=== PATIENT | female | born 1965 | race Caucasian/White ===

== ENCOUNTER 2025-09-08 14:08 | Day surgery (SDC) | payer BC ==
--- NOTE | 2025-09-07 09:24 | ELECTROCARDIOGRAPH REPORT ---
[facility] Test Date: 2025-09-07 Test Time: 09:20:14 Pat Name: ROBBIN DIOP Department: [facility]-PRE-OP Patient ID: [id number] Room: Gender: F Grinder Set Up Operator Centerless: SCOTT : 1965 Requested By: ARSALAN TALLEY Order Number: [id number] Reading MD: Dr. HOME Dave Measurements Intervals Paulina Rate: 54 P: 68 TN: 164 QRS: 62 QRSD: 78 T: 57 QT: 426 QTc: 404 Interpretive Statements Sinus bradycardia Electronically Signed On 09-07-2025 12:52:[address] HOME Dave Please click the below link to view image of tracing.
[2025-09-07 09:30] LABS: MEAN PLATELET VOLUME 8.0 FL (7.4-10.4); PRE OP HEMATOCRIT 37.8 % (35.0-45.0); PRE OP HEMOGLOBIN 12.4 g/dL (12.0-16.0); PRE OP PLATELET COUNT 318 X10'3 (140-440); PRE OP WHITE BLOOD COUNT 6.8 10'3 (4.8-10.8); RED CELL DISTRIBUTION WIDTH 13.7 % (11.5-14.5)
[2025-09-07 10:18] LABS: CREATININE 0.53 MG/DL (0.40-0.90); PRE OP ALT 22 U/L (30-65); PRE OP ANION GAP 7 (8-16); PRE OP AST 18 U/L (10-37); PRE OP BILIRUB, TOTAL 0.4 MG/DL (0.0-1.0); PRE OP GLUCOSE 85 MG/DL (70-104); PRE OP POTASSIUM 4.1 MMOL/L (3.4-5.1); PRE OP SODIUM 143 MMOL/L (135-145); TOTAL CARBON DIOXIDE 30.1 MMOL/L (24-32); eGFR > 90 ML/MIN
[~2025-09-08] VITALS: Ht 152.4 cm; Wt 56.7 kg
[2025-09-08] VITALS (12 sets, daily range): BP systolic 117–156; BP diastolic 54–78; PULSE 50–65; RESP 12–16; TEMP 98.4; O2SAT 94–100
[~2025-09-08 14:08] MED LIST: NO HOME MEDS
[2025-09-08] MEDS ORDERED: BUPIVAcaine/PF 2.5mg/ml (0.25%) 10ml vial ONE (14:42)
[2025-09-08] MEDS ORDERED: LIDOcaine 1% 30ml preserv. free vial ONE (14:43)
[2025-09-08] MEDS: INDOCYANINE GREEN 25 MG/10 ML VIAL IV ONE (15:26)
[2025-09-08] MEDS: ceFAZolin 2gm/dext,iso 50mL 50 ML IV ONE (15:29)
[2025-09-08] MEDS: ringers solution, lacted 1,000 ML IV SCH (15:29)
[2025-09-08] MEDS ORDERED: fentaNYL/PF 50MCG/1 ML 2ML syringe IV PRN (16:25)
[2025-09-08] MEDS ORDERED: enalaprilat 1.25mg/ml 2ml vial IV PRN (16:25)
[2025-09-08] MEDS ORDERED: ondansetron/PF 4mg/2ml inj IV PRN (16:25)
[2025-09-08] MEDS ORDERED: ringers solution, lacted 1,000 ML IV SCH (16:25)
[2025-09-08] MEDS ORDERED: HYDROmorphone/PF 0.2 MG/ML SYRINGE IV PRN ×2 (16:25)
[2025-09-08] MEDS ORDERED: labetalol 20mg/4ml (5mg/ml) syringe IV PRN (16:25)
[2025-09-08] MEDS ORDERED: morphine 4 MG/ML inj SYRINge IV PRN (16:25)
[2025-09-08] MEDS ORDERED: LIDOcaine 1%/PF 5ML 10 MG/ML VIAL ONE (16:35)
[2025-09-08] MEDS ORDERED: fentaNYL/PF 50MCG/1 ML 2ML syringe ONE (16:35)
[2025-09-08] MEDS ORDERED: propofol inj 20 ML IV ONE (16:35)
[2025-09-08] MEDS ORDERED: midazolam 1 mg/ML 2ml injection ONE (16:35)
[2025-09-08] MEDS ORDERED: ondansetron/PF 4mg/2ml inj ONE (16:57)
[2025-09-08] MEDS ORDERED: dexamethasone sod phosphate 4mg/ml inj. ONE (16:57)
[2025-09-08] MEDS ORDERED: rocuronium 10mg/ml inj IV ONE (16:57)
[2025-09-08] MEDS ORDERED: acetaminophen 1,000mg/100ml IV 100 ML IV ONE (17:09)
[2025-09-08] MEDS ORDERED: glycopyrrolate 0.2mg/ml inj ONE (17:09)
[2025-09-08] MEDS: LIDOcaine 1% 30ml preserv. free vial IJ ONE (17:14)
[2025-09-08] MEDS: BUPIVAcaine/PF 2.5 mg/ml (0.25%) 30ml vial IJ ONE (17:14)
--- NOTE | 2025-09-08 18:24 | OPERATIVE REPORT ---
Operative Report Providers to CC CC: RICARDO TALLEY MD ~ Date of Procedure: Sep 08, 2025 Pre-Operative Diagnosis: Symptomatic cholelithiasis Post-Operative Diagnosis SAME as PRE-Op Procedure Performed Robotic assisted, laparoscopic cholecystectomy Surgeon: Ricardo Talley MD FACS [employer] Machine Operator Helper None Anesthesiologist: Kehinde Christiansen Type of Anesthesia: General Findings: Clear visualization of the cystic duct, common bile duct and critical view of safety Wound class II Complications None Prosthetics\Implants used: None Estimated Blood Loss: Minimal Specimen Removed: Gallbladder Description of Procedure: Patient was brought to the operating room and identified by the nursing staff and the attending physician. Patient was placed supine and general anesthesia was induced. A supraumbilical, midline incision was made, long enough to accommodate a 12 mm Alejo port. Alejo technique was used to gain entry into the abdomen. Stay sutures were placed in the Alejo port anchored to the fascia. Abdomen was insufflated without incident. Laparoscope was inserted and the abdomen surveyed. Secondary, 8.5 mm robotic trochars were placed in the left upper quadrant and right lateral abdomen. Robotic arm was docked to the patient. Robotic instruments were guided intra- abdominally under laparoscopic visualization. There were some adhesions to the right lobe of the liver and the anterior abdominal wall that were taken down. There was a loop of small intestine traversing up to the hiatus that appeared to be fixed to the anterior abdominal wall consistent with history of gastric bypass. Gallbladder was readily identified. It filled with contrast using the firefly setting. Fundus of the gallbladder was grasped and retracted over the dome of the liver. Infundibulum was retracted towards the right lower quadrant. Firefly technology was used to obtain a fluorescent cholangiogram and visualize the pertinent anatomy. Cystic duct was clearly visualized. Peritoneum overlying the triangle was incised with hook electrocautery. This allowed for circumferential dissection of the cystic duct and artery. Critical view of safety was obtained. Duct and artery were then clipped with hemo-lock clips and both structures divided. Gallbladder was retracted laterally and dissected out of the gallbladder fossa. Gallbladder was set aside and fluorescent cholangiogram of the gallbladder fossa was used to confirm no evidence of bile leak. Gallbladder was placed in a laparoscopic retrieval bag. Secondary trochars were removed and the abdomen allowed to deflate. Alejo port was removed with the specimen in its retrieval bag. Fascia at the umbilical port site was closed with 0 Vicryl sutures. Skin was closed with 4-0 Monocryl sutures in a subcuticular fashion About 40 cc of local anesthetic was used during the case. Sterile dressings were applied. Patient was awakened and taken to the postanesthesia care unit in stable condition. Counts repoted as correct: Yes RICARDO TALLEY MD Sep 08, 2025 18:24
[2025-09-08] MEDS: fentaNYL/PF 50MCG/1 ML 2ML syringe IV PRN (18:27)
[2025-09-08] MEDS: HYDROcodone/acetaminophen 5mg/325mg tablet PO PRN (18:51)
== END 2025-09-08 19:22 | disposition home or self-care (01) ==
LOC: PAS 14:08
PROVIDERS: ATTEND Surgery
DX: K80.10 Calculus of gallbladder with chronic cholecystitis without obstruction (principal); R00.1 Bradycardia, unspecified; R73.09 Other abnormal glucose; Z98.84 Bariatric surgery status
CPT/HCPCS: 36415; 47563; 80053; 82948; 85025; 93005; J0131; J1100; J2003; J2250; J2270; J2405; J2704; J3010; J3490; J7030; J7120; S2900; Z7506; Z7508; Z7512; A4215; A4618; A7000